=== PATIENT | female | born 1960 | race Caucasian/White ===

== ENCOUNTER 2016-04-25 09:00 | Emergency (ER) | payer MEDICARE ==
[~2016-04-25] VITALS: Ht 167.6 cm; Wt 68.2 kg
[~2016-04-25 09:00] MED LIST: ASPI325T32 PO; CHOL200047 PO; DIAZ5TAB3 PO; DOCU240C41 PO; FUR20 PO; LORA1TAB PO; LUBI8CAP4 PO; METO25TA99 PO; MORP-33 PO; MULT-1073 PO; OMEP20TA24 PO; OXYC10TA8 PO; POLY500P23 PO; POTA20TA7 PO; RES30 PO; SENN8.6C6 PO; TAMS0.4C29 PO; WHEA98PO PO
[2016-04-25 09:11] VITALS: BP 128/83; PULSE 79; RESP 16; O2SAT 94
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
[2016-04-25] MEDS ORDERED: Ondansetron 2 mg/mL 2 mL Inj IVPUSH ONE (10:45)
[2016-04-25] MEDS ORDERED: Clindamycin Inj 900 MG in IV Premix 1 EACH IV ONE (10:45)
[2016-04-25] MEDS ORDERED: HYDROmorphone 0.5 mg/0.5 mL iSecure Syringe IVPUSH PRN (10:45)
[2016-04-25 11:24] LABS: BASOPHILS % (AUTO) 1.2 % (0-3); EOSINOPHILS % (AUTO) 2.4 % (0-5); MONOCYTES % (AUTO) 9.4 % (4-12); Mean Corpuscular Hemoglobin 30.6 pg (27.0-35.0); Mean Corpuscular Volume 87.8 fL (81-100); NEUTROPHILS % (AUTO) 62.2 % (40-74); Platelet Count 163 bil/L (150-400)
[2016-04-25 11:49] VITALS: BP 90/63; PULSE 66; RESP 16; O2SAT 94
[2016-04-25] MEDS ORDERED: LACT1CAP65 PO (13:16)
[2016-04-25] MEDS ORDERED: OXYC1TAB24 PO (13:16)
[2016-04-25] MEDS ORDERED: CLIN-78 PO (13:16)
[2016-04-25] MEDS ORDERED: FLUC150T48 PO (13:26)
[2016-04-25 14:08] VITALS: BP 102/68; PULSE 60; RESP 16; O2SAT 97
--- NOTE | 2016-04-25 16:49 | DRSVH ---
PROCEDURE: US BREAST LIMITED SONOGRAM, RIGHT INDICATIONS: 55 year-old female with possible right breast abscess. TECHNIQUE: Real-time focused scanning was performed of the right breast subareolar region, with image documentat ion. COMPARISON: [facility], MG, DIAGNOSTIC BILAT MAMMO, 03/22/2016, 8:39. [facility], US, US BREAST LTD RT, 03/22/2016, 8:58. FINDINGS: In the retroareolar region, no fluid collections are identified to suggest breast abscess. There is hypervascularity in the right nipple region. IMPRESSION: No sonographic evidence for subareolar right breast abscess. Right nipple hypervascularit y may reflect soft tissue infection in the appropriate clinical setting. BIRADS 2 (benign) Dictated by: Reuben Mays M.D. on 04/25/2016 at 16:47 Approved by: Reuben Mays M.D. on 04/25/2016 at 16:47
== END 2016-04-25 14:09 | disposition home or self-care (01) ==
LOC: SED 09:00
DX: N61.0 Mastitis without abscess (principal); G47.00 Insomnia, unspecified; M79.7 Fibromyalgia; Z95.0 Presence of cardiac pacemaker; Z98.890 Other specified postprocedural states; Z79.82 Long term (current) use of aspirin; Z87.891 Personal history of nicotine dependence; Z88.5 Allergy status to narcotic agent
CPT/HCPCS: 36415; 76642; 80053; 85025; 96365; 96375; 99285; J1170; J2405